=== PATIENT | female | born 1960 | race African-American/Black ===

== ENCOUNTER 2023-02-05 17:30 | Inpatient (IN) | payer MEDICAID, MEDICARE ==
[2023-02-05] MEDS ORDERED: Sodium Chloride 0.9% 1,000 ML IV PRN ×4 (20:41)
[2023-02-05] MEDS ORDERED: Dextrose 50% Abboject 50 ML SYRINGE SLOW IVP PRN ×2 (20:41→20:42)
[2023-02-05] MEDS ORDERED: D5 1/2 NS w/20 mEq KCL 1,000 ML IV PRN (20:41)
[2023-02-05] MEDS ORDERED: Electrolyte Replacement Protocol 1 EACH IVPB SCH (20:41)
[2023-02-05] MEDS ORDERED: NS 0.9% w/ 20 MEQ KCL 1,000 ML IV PRN ×2 (20:41)
[2023-02-05] MEDS ORDERED: Dextrose 5 %-0.45 % NaCl 1,000 ML IV PRN (20:41)
[2023-02-05] MEDS ORDERED: HumaLOG 300 UNITS/3 ML VIAL SC PRN ×2 (20:42)
[2023-02-05] MEDS ORDERED: Dextrose 5% in Water 1,000 ML IV PRN (20:42)
[2023-02-05] MEDS ORDERED: Glucagon 1 MG/ML KIT IM PRN (20:42)
[2023-02-05] MEDS ORDERED: Senokot S 8.6-50 MG TAB PO PRN (20:44)
[2023-02-05] MEDS ORDERED: Ondansetron ODT 4 MG TAB PO PRN (20:44)
[2023-02-05] MEDS ORDERED: Calcium Carbonate 500 MG ChewTAB PO PRN (20:44)
[2023-02-05 20:48] VITALS: BMI 24.2
[2023-02-05] MEDS: Lactated Ringer's 1,000 ML IV SCH (21:30)
[2023-02-05] MEDS: Famotidine 20 MG TAB PO SCH (21:37)
[2023-02-05] MEDS: Ondansetron PF 4 MG/2 ML Vial IVP PRN (21:37)
[2023-02-05 23:08] LABS: Hemoglobin A1c 5.6 % (4.0-6.0)
[2023-02-05 23:19] LABS: Anion Gap 17 mmol/L (10-20); BUN (Urea Nitrogen) 15 mg/dL (9.8-20.1); Calc. Creatinine Clearance 53 mL/min (70-130); Calcium 9.2 mg/dL (7.8-10.44); Carbon Dioxide 13 mmol/L (22-29); Chloride 105 mmol/L (98-107); Estimated GFR 56; Glucose 87 mg/dL (70-105); Potassium 3.8 mmol/L (3.5-5.1); Sodium 131 mmol/L (136-145)
[2023-02-06] MEDS ORDERED: Sodium Bicarb 50 MEQ/50 ML VIAL IVP SCH (01:00)
[2023-02-06 04:35] LABS: #Monocytes 0.8 thou/uL (0.11-0.59); #Neutrophils 5.4 thou/uL (1.40-6.50); %Basophils 0.5 % (0.0-1.0); %Eosinophils 0.4 % (0.0-10.0); %Lymphocytes 25.1 % (21.0-51.0); %Monocytes 9.9 % (0.0-10.0); %Neutrophils 63.9 % (42.0-75.0); Hematocrit 41.7 % (36.0-47.0); Hemoglobin 13.3 g/dL (12.0-16.0); Mean Corpuscular HGB CONC 31.9 g/dL (32.0-36.0); Mean Corpuscular Hemoglobin 31.2 pg (27.0-31.0); Mean Corpuscular Volume 97.9 fl (78.0-98.0); Mean Platelet Volume 10.1 fL (7.4-10.4); Platelet Count 210 10x3/uL (130-400); RBC Distribution Width 12.8 % (11.5-14.5); Red Blood Cell (RBC) Count 4.26 mill/uL (4.20-5.40); White Blood Cell (WBC) Count 8.4 10x3/uL (4.8-10.8)
[2023-02-06 05:04] LABS: Anion Gap 19 mmol/L (10-20); BUN (Urea Nitrogen) 13 mg/dL (9.8-20.1); Calc. Creatinine Clearance 60 mL/min (70-130); Calcium 8.8 mg/dL (7.8-10.44); Carbon Dioxide 17 mmol/L (22-29); Chloride 103 mmol/L (98-107); Estimated GFR 64; Glucose 119 mg/dL (70-105); Potassium 3.8 mmol/L (3.5-5.1); Sodium 135 mmol/L (136-145)
[2023-02-06] MEDS: Lactated Ringer's 1,000 ML IV SCH ×2 (05:12→13:34)
[2023-02-06] MEDS: Acetaminophen 325 MG TAB PO PRN ×2 (06:21→21:05)
[2023-02-06] MEDS: Famotidine 20 MG TAB PO SCH ×2 (08:17→20:49)
[2023-02-06] MEDS: Sertraline 100 MG TAB PO SCH (08:18)
[2023-02-06] MEDS: Sacubitril 49 MG/Valsartan 51 MG TABLET PO SCH ×2 (08:18→20:50)
[2023-02-06] MEDS: Carvedilol 6.25 MG TAB PO SCH ×2 (08:18→20:50)
[2023-02-06 08:19] VITALS: BP 133/76
[2023-02-06] MEDS: busPIRone HCl 10 MG TAB PO SCH ×2 (08:28→20:50)
[2023-02-06 08:48] LABS: Anion Gap 18 mmol/L (10-20); BUN (Urea Nitrogen) 12 mg/dL (9.8-20.1); Calc. Creatinine Clearance 59 mL/min (70-130); Carbon Dioxide 17 mmol/L (22-29); Chloride 102 mmol/L (98-107); Estimated GFR 63; Glucose 115 mg/dL (70-105); Potassium 3.6 mmol/L (3.5-5.1); Sodium 133 mmol/L (136-145)
[2023-02-06] MEDS: Ondansetron PF 4 MG/2 ML Vial IVP PRN ×2 (10:46→17:00)
[2023-02-06 12:31] LABS: Lactic Acid 0.8 mmol/L (0.5-2.2)
[2023-02-06] MEDS: Metoclopramide HCl 10 MG/2 ML VIAL IVP SCH (20:56)
[2023-02-06] MEDS ORDERED: Spironolactone 25 MG TAB PO SCH (21:00)
[2023-02-06] MEDS ORDERED: Atorvastatin Calcium 40 MG TAB PO SCH (21:00)
[2023-02-07 05:37] LABS: Anion Gap 11 mmol/L (10-20); BUN (Urea Nitrogen) 9 mg/dL (9.8-20.1); Calc. Creatinine Clearance 66 mL/min (70-130); Calcium 8.9 mg/dL (7.8-10.44); Carbon Dioxide 27 mmol/L (22-29); Chloride 101 mmol/L (98-107); Estimated GFR 71; Glucose 144 mg/dL (70-105); Sodium 136 mmol/L (136-145)
[2023-02-07 07:33] VITALS: TEMP 97.4
[2023-02-07] MEDS: Sertraline 100 MG TAB PO SCH (07:39)
[2023-02-07] MEDS: Carvedilol 6.25 MG TAB PO SCH (07:40)
[2023-02-07] MEDS: busPIRone HCl 10 MG TAB PO SCH (07:40)
[2023-02-07] MEDS: Sacubitril 49 MG/Valsartan 51 MG TABLET PO SCH (07:40)
[2023-02-07] MEDS: Famotidine 20 MG TAB PO SCH (07:40)
[2023-02-07] MEDS: Metoclopramide HCl 10 MG/2 ML VIAL IVP SCH (07:41)
[2023-02-07] MEDS ORDERED: Potassium Chloride 20 MEQ TAB PO SCH ×2 (08:00→09:00)
[2023-02-07] MEDS ORDERED: Potassium Bicarbonate/Cit Ac 20 MEQ TAB PO SCH (09:00)
== END 2023-02-07 09:17 | disposition home or self-care (01) | DRG 638 ==
LOC: CCU 17:30 → IMCU/EMU 02-06 16:20
PROVIDERS: ADMIT Student in an Organized Health Care Education/Training Program; ATTEND Internal Medicine
DX: E11.10 Type 2 diabetes mellitus with ketoacidosis without coma (principal); I50.22 Chronic systolic (congestive) heart failure; N17.9 Acute kidney failure, unspecified; I11.0 Hypertensive heart disease with heart failure; Z88.6 Allergy status to analgesic agent; Z88.8 Allergy status to other drugs, medicaments and biological substances; Z91.041 Radiographic dye allergy status; Z79.899 Other long term (current) drug therapy; Z79.84 Long term (current) use of oral hypoglycemic drugs; E78.5 Hyperlipidemia, unspecified; Z95.0 Presence of cardiac pacemaker
CPT/HCPCS: 36415; 36416; 80048; 82010; 83036; 83605; 85025; J1815; J2405; J2765; J7120

== ENCOUNTER 2023-06-12 09:19 | Outpatient (CLI) | payer OTHER | END 2023-06-12 09:20 | disposition home or self-care (01) | LOC: SCSCT 09:19 | PROVIDERS: ATTEND Family Medicine | DX: S09.90XA Unspecified injury of head, initial encounter (principal); G44.319 Acute post-traumatic headache, not intractable | CPT/HCPCS: 70450 ==